=== PATIENT | female | born 1950 | race Two or more races ===

== ENCOUNTER 2019-09-02 23:29 | Inpatient (IN) | payer MEDICARE, BC ==
[~2019-09-02] VITALS: Ht 162.6 cm; Wt 57.6 kg
[2019-09-02] MEDS ORDERED: PROPOFOL 20 ML IV ONE ×2 (23:52→23:57)
--- NOTE | 2019-09-02 23:55 | NUR ---
AT BEDSIDE FOR R HIP REDUCTION. GIVEN PROPOFOL 100MG IVP BY .
[2019-09-03] MEDS ORDERED: HYDROMORPHONE 1 MG/1 ML DISP.SYRIN ONE ×2 (00:03→00:39)
--- NOTE | 2019-09-03 00:05 | NUR ---
Note undone in EDM - 09/03/19 at 0019 by TOM BIBRA FROM HOME TO ER BED 11. AAOX4. NO RESP DISTRESS NOTED. BROUGHT IN ON [facility]. C/O R HIP PAIN. PT REPORTS THAT SHE FEELS HER R HIP DISLOCATED, REPORTS OF HAPPENING BEFORE. PAIN RATES PAIN 10/10 W/ LIMITED ROM D/T, POSITIVE FOR SHORTENING BUT NO ROTATION NOTED. ACCORDING TO PT SHE WAS SQUATING AND HEARD HER HIP POPPED. HX OF HIP SURGERIES. MD WAS AT BEDSIDE FOR EVAL. ORDERS RECEIVED , NOTED AND CARRIED OUT. IV LINE ALREADY PRESENT UPON ARRIVAL ON R AC 20. CONSENT FOR MODERATE SEDATION OBTAINED FROM PT AFTERWARDS MD WAS AT BEDSIDE FOR THE REDUCTION W/ RT ON BEDSIDE.
--- NOTE | 2019-09-03 00:05 | NUR ---
PARAMJIT FROM HOME TO ER BED 11. AAOX4. NO RESP DISTRESS NOTED. BROUGHT IN ON [facility]. C/O R HIP PAIN. PT REPORTS THAT SHE FEELS HER R HIP DISLOCATED, REPORTS OF HAPPENING BEFORE. PAIN RATES PAIN 10/10 W/ LIMITED ROM D/T, POSITIVE FOR SHORTENING W/ INTERNAL ROTATION NOTED. PEDAL PULSE APPRECIATED UPON PALPATION. ACCORDING TO PT SHE WAS SQUATING AND HEARD HER HIP POPPED. HX OF HIP SURGERIES. MD WAS AT BEDSIDE FOR EVAL. ORDERS RECEIVED , NOTED AND CARRIED OUT. IV LINE ALREADY PRESENT UPON ARRIVAL ON R AC 20. CONSENT FOR MODERATE SEDATION OBTAINED FROM PT AFTERWARDS MD WAS AT BEDSIDE FOR THE REDUCTION W/ RT ON BEDSIDE.
--- NOTE | 2019-09-03 00:10 | NUR ---
2ND ATTEMPT FOR R HIP REDUCTION BY MD AT BEDSIDE W/ RT. STILL + SHORTENING & INTERNAL ROTATION ON R LEG. GIVEN ANOTHER 100MG PROPOFOL VIA IVP BY .
--- NOTE | 2019-09-03 00:15 | NUR ---
3RD ATTEMTP TO REDUCE R HIP DISLOCATION BY MD AT BEDSIDE. PROPOFOL 50MG ORDERED BY MD AND GIVEN BY RN.
--- NOTE | 2019-09-03 00:24 | NUR ---
CYNTHIA ESCALANTE FOR CONSULT. 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
[2019-09-03] MEDS ORDERED: HYDROMORPHONE 1 MG/1 ML DISP.SYRIN IV ONE ×2 (00:30→01:00)
--- NOTE | 2019-09-03 00:43 | NUR ---
CALLED HOUSE [facility] FOR MS BED
--- NOTE | 2019-09-03 00:49 | NUR ---
[id number] DR. AMAYA BED ASSIGNMENT: 327-1
[2019-09-03] MEDS ORDERED: Z GUARD REMEDY 2 OZ OINT TP PRN (01:00)
[2019-09-03] MEDS ORDERED: HYDROCODONE/APAP 5/325MG 1 EACH TABLET PO PRN (01:00)
[2019-09-03] MEDS ORDERED: MAG HYDROX/AL HYDROX/SIMETH 30 ML UDC PO PRN (01:00)
[2019-09-03] MEDS ORDERED: PROPOFOL 200 MG/20 ML VIAL IV ONE ×3 (01:00)
[2019-09-03] MEDS ORDERED: MAGNESIUM HYDROXIDE 30 ML UDC PO PRN (01:00)
[2019-09-03] MEDS ORDERED: ONDANSETRON HCL/PF 4 MG/2 ML VIAL IVP PRN (01:00)
[2019-09-03] MEDS ORDERED: ZOLPIDEM TARTRATE 5 MG TABLET PO PRN (01:00)
[2019-09-03] MEDS ORDERED: ACETAMINOPHEN 325 MG TABLET PO PRN (01:00)
[2019-09-03] MEDS ORDERED: MORPHINE SULFATE INJ 2 MG/ML DISP.SYRIN IV PRN (01:00)
[2019-09-03 01:05] VITALS: BP 137/88
--- NOTE | 2019-09-03 01:06 | NUR ---
REPORT GIVEN TO CARLOS MOURA FOR KRYSTAL.
--- NOTE | 2019-09-03 01:08 | NUR ---
PER PT SHE IS NOT TAKING ANY MEDICATION AT HOME
[2019-09-03 01:09] LABS: BASOPHILS # (AUTO) 0.1 /CMM (0.0-0.2); BASOPHILS % (AUTO) 1.2 % (0.0-2.0); EOSINOPHILS % (AUTO) 2.9 % (0.0-6.0); HEMATOCRIT 36 % (33-45); HEMOGLOBIN 12.1 g/dL (11.5-14.8); LYMPHOCYTES # (AUTO) 1.4 /CMM (0.8-4.8); LYMPHOCYTES % (AUTO) 24.1 % (20.0-44.0); MEAN CORPUSCULAR HGB CONC 33 g/dl (31.0-36.0); MEAN CORPUSCULAR VOLUME 98 fL (82-100); MONOCYTES # (AUTO) 0.6 /CMM (0.1-1.30); MONOCYTES % (AUTO) 10.1 % (2.0-12.0); NEUTROPHILS # (AUTO) 3.7 /CMM (1.8-8.9); NEUTROPHILS % (AUTO) 61.7 % (43.0-81.0); PLATELET COUNT (AUTO) 187 /CMM (150-450); RED BLOOD CELL COUNT(AUTO) 3.71 MIL/uL (4.0-5.2)
[2019-09-03] MEDS ORDERED: LORAZEPAM INJ 2 MG/ML VIAL ONE (01:13)
[2019-09-03 01:17] LABS: CALCIUM, SERUM 8.9 mg/dL (8.5-10.1); CREATININE 0.7 mg/dL (0.6-1.3); POTASSIUM 4.1 mmol/L (3.5-5.1)
--- NOTE | 2019-09-03 01:27 | NUR ---
PT TRANSPORTED TO UNIT ON [facility] W/ RN AND EMT AT BEDSIDE. PT IS IN STABLE CONDITIO FOR TRANSPORT
[2019-09-03] MEDS ORDERED: LORAZEPAM INJ 2 MG/ML VIAL IV ONE (01:30)
[2019-09-03 01:45] VITALS: BP 137/88
--- NOTE | 2019-09-03 02:00 | NUR ---
M/S ADMISSION NOTE RECEIVED PATIENT FROM ER VIA [facility] FOR RIGHT HIP DISLOCATION. PATIENT A/O x4, AWAKE, AND ON ROOM AIR. PATIENT COMPLAINS OF PAIN 8/10 ON RIGHT HIP, PILLOW PLACED UNDER PATIENT TO SUPPORT HIP AND DILAUDID 1MG GIVEN IN ER. NO SIGNS OF ACUTE DISTRESS NOTED. BREATHING EVEN AND UNLABORED. IV LOCATED ON RIGHT AC #20. SKIN IS INTACT. PATIENT PREFERS TO WEAR OWN CLOTHES. ADMISSION ROUTINE COMPLETED. AWAITING ORTHO CONSULT. WILL CONTINUE TO MONITOR ACCORDINGLY.
[2019-09-03] MEDS: HYDROMORPHONE 1 MG/1 ML DISP.SYRIN IV PRN ×3 (06:52→15:01)
--- NOTE | 2019-09-03 06:55 | NUR ---
M/S RN CLOSING NOTES PATIENT CURRENTLY RESTING IN BED A/O x4, ABLE TO MAKE NEEDS KNOWN. NO SIGNS OF ACUTE DISTRESS. PATIENT NOT AMBULATORY, CONTINENT AND USES THE BED MARTIN. IV LOCATED ON R AC #20 PATENT AND INTACT. PATIENT NEEDS ATTENDED TO. SAFETY PRECAUTIONS ARE IN PLACE WITH BED IN LOWEST POSITION, LOCKED, AND CALL LIGHT WITHIN REACH. WILL ENDORSE TO ONCOMING SHIFT ABOUT KRYSTAL.
--- NOTE | 2019-09-03 07:30 | NUR ---
MS/RN Opening note Patient received resting in bed, A/O x4, showing no signs of acute distress or SOB, saturating >95% on RA. Vital signs this morning WNL. IV in the RAC #20 is clean and patent. Bed is in lowest position, side rails x2 in upright position, call light is within reach and patient is aware of how to call for assistance when needed. Will continue with current plan of care.
--- NOTE | 2019-09-03 07:34 | NUR ---
MS/RN S/B Dr Childress Seen by Dr Childress - cleared for any surgical intervention that may be required.
--- NOTE | 2019-09-03 07:52 | NUR ---
MS/RN contacted Dr Jo contacted to enquire as to when patient will be seen for orthopedic consult. Awaiting call back.
--- NOTE | 2019-09-03 07:57 | NUR ---
MS/RN Surgeon details Patient's previous orthopedic MD contact information: -Dr Abbasi
[2019-09-03 08:11] VITALS: BP 139/73
[2019-09-03 09:24] VITALS: BP 139/73
--- NOTE | 2019-09-03 10:00 | NUR ---
MS/RN CT Patient taken down to CT at this time
--- NOTE | 2019-09-03 10:30 | NUR ---
MS/RN CT patient back from CT at this time.
--- NOTE | 2019-09-03 12:46 | NUR ---
MS/RN NPO Patient kept NPO as per Dr. Jo..
[2019-09-03 16:00] VITALS: BP 133/76
--- NOTE | 2019-09-03 16:45 | NUR ---
MS/RN s/b Dr. Jo Patient seen by Dr. Jo, scheduled for CLOSED REDUCTION OF RIGHT HIP DISLOCATION. All questions and concerns addressed. Patient verbalizes understanding and in agreement to have surgery at this hospital. Consents signed and in chart, pre-op checklist completed.
--- NOTE | 2019-09-03 17:57 | NUR ---
MS/RN OR Patient taken down to OR for CLOSED REDUCTION OF RIGHT HIP DISLOCATION.
--- NOTE | 2019-09-03 19:33 | NUR ---
M/S RN POST OP PATIENT RETURNED FROM SURGERY VIA [facility].
--- NOTE | 2019-09-03 19:48 | NUR ---
M/S RN POST OP SPOKE TO DR. SOLIZ ON THE PHONE ABOUT POST OP ORDERS AND CLEAR FOR DISCHARGE FOR PATIENT. SAID HE RECOMMENDS PT EVAL BUT IS FREE TO BE DISCHARGED IF WANTED. ABLE TO CONTINUE REGULAR DIET.
[2019-09-03 20:00] VITALS: BP 137/77
--- NOTE | 2019-09-03 22:00 | NUR ---
TANYARD WORKER/AMA NOTES: Pt INSISTED ON LEAVING TONIGHT AND DID NOT WANT TO WAIT ANY LONGER TO GET DISCHARGE ORDERS FROM THE HOSPITALIST. Pt AGREED TO SIGN OUT AMA. WILL GET PAPER WORK READY. AND INFORM DR. AMAYA OF Pt LEAVING AMA.
--- NOTE | 2019-09-03 22:30 | NUR ---
X RAY TECH/AMA NOTES Pt LEFT AMA. SIGNED AMA DOCUMENT. PROVIDED COPY TO Pt. REMOVED IV AND SECURED WITH GAUZE AND TAPE. NO S/S OF BLEEDING NOTED. ID BAND REMOVED. Pt WAS ESCORTED DOWN VIA WHEELCHAIR BY CONNIE OSORIO. ALL BELONGINGS SENT WITH Pt. Pt LEFT FLOOR IN STABLE CONDITION. NO S/S OF ACUTE DISTRESS OR SOB NOTED. VS STABLE.
== END 2019-09-03 22:30 | disposition left against medical advice (07) | DRG 561 ==
LOC: ER 23:31 → MED 09-03 00:58
PROVIDERS: ADMIT Hospitalist; ATTEND Hospitalist
PROC: 0SW9XJZ Revision of Synthetic Substitute in Right Hip Joint, External Approach (ICD-10-PCS; principal; 2019-09-03)
DX: T84.020A Dislocation of internal right hip prosthesis, initial encounter (principal); Y92.129 Unspecified place in nursing home as the place of occurrence of the external cause; Y79.2 Prosthetic and other implants, materials and accessory orthopedic devices associated with adverse incidents; Z96.643 Presence of artificial hip joint, bilateral; R79.89 Other specified abnormal findings of blood chemistry
CPT/HCPCS: 36415; 71045-TC; 73501; 73700-TC; 80048-TC; 85025-TC; 85730-TC; 87081-TC; G0378; G0500; J1170; J2001; J2060; J2270; J2405; J2704; L1830